=== PATIENT | female | born 1985 | race Caucasian/White ===

== ENCOUNTER 2016-11-06 11:13 | Emergency (ER) | payer SELFPAY ==
[2016-11-06 11:59] LABS: Bilirubin Negative (Negative); Blood, Urine Trace (Negative); Clarity Cloudy (Clear); Glucose, Urine (Dipstick) Negative (Negative); Leukocyte Negative (Negative); Nitrite Positive (Negative); Protein, Urine (Dipstick) Negative (Neg-Trace); Specific Gravity, Urine 1.015 (1.005-1.030); Urobilinogen 0.2 mg/dL (0.2-1.0)
[2016-11-06 12:00] LABS: Pregu Control Bar Appear? YES (CONTROL BAR); Specific Gravity 1.015 (1.002-1.036)
[2016-11-06 12:04] LABS: Bacteria/HPF 3+ HPF (None Seen); RBC/HPF 0-3 HPF (0-3); Squamous Epithelial 0-3 HPF (0-3); WBC/HPF 0-3 HPF (0-3)
--- NOTE | 2016-11-06 12:47 | RAD ---
LUMBAR SPINE 3 VIEWS: HISTORY: Chronic low back pain and right lower extremity numbness. COMPARISON: None. FINDINGS: There are 5 [id number] lumbar-type vertebrae. Mild degenerative disk space height loss at L5-S 1 posteriorly. Small anterior osteophytes at L4-5. No acute fracture or malalignment. The transverse processes are normal. There are phleboliths in the pelvis. Soft tissues are unremarkable. IMPRESSION: Very mild spondylosis of L5-S1. No acute abnormality. POS: [facility]
== END 2016-11-06 12:24 | disposition home or self-care (01) ==
LOC: BURERS 11:13
DX: G89.29 Other chronic pain (principal); M54.5 Low back pain; N39.0 Urinary tract infection, site not specified; F17.210 Nicotine dependence, cigarettes, uncomplicated
CPT/HCPCS: 72100; 81003; 81015; 81025

== ENCOUNTER 2016-12-02 11:15 | Outpatient (CLI) | payer MEDICAID ==
--- NOTE | 2016-12-02 18:56 | ULT ---
PELVIC ULTRASOUND WITH ENDOVAGINAL IMAGING 12/02/16 Ultrasonography of the pelvis was performed. Initially, transabdominal images were obtained. Because there was the need to see the endometrium and the ovaries better, endovaginal images were then obta ined. The uterus measures 8.5 x 4.6 x 5.6 cm. No uterine masses were seen. The endometrium is 8 mm thick w hich is normal. There is some bright echoes along its margins raising a question of some calcificati ons. Each ovary was 3.6 cm in length. There were a significant number of peripheral follicles in each ova ry. At least 15 to 16 were counted on the right and nearly 13 on the left. This raises the question of polycystic ovaries. No large cysts or masses were seen. Blood flow was present in each ovary. The re was a trace of free fluid present which is probably physiologic. IMPRESSION: 1. Suspicious for polycystic ovaries. See above. 2. Normal thickness endometrium but some question if there might be some calcification within t he endometrial cavity. POS: HOME
== END 2016-12-02 11:16 | disposition home or self-care (01) ==
LOC: BURULT 11:15
PROVIDERS: ATTEND Family Medicine
DX: N94.12 Deep dyspareunia (principal)
CPT/HCPCS: 76856